=== PATIENT | male | born 1980 | race Two or more races ===

== ENCOUNTER 2025-07-17 12:15 | Inpatient (IN) | payer OTHER ==
[~2025-07-17] VITALS: Ht 30.5 cm; Wt 102.1 kg
[2025-07-24 07:45] LABS: URINE APPEARANCE Clear; URINE BILIRRUBIN Negative (NEGATIVE); URINE BLOOD Negative; URINE COLOR Yellow; URINE GLUCOSE Negative (NEGATIVE); URINE KETONE Negative (NEGATIVE); URINE LEUKOCYTE Negative; URINE NITRATE Negative; URINE PROTEIN Negative (NEGATIVE); URINE UROBILINOGEN 0.2 E.U./dl
[2025-07-24 07:50] LABS: URINE BACTERIA 25.1 uL (0.0-1933); URINE EPITHELIAL CELLS 4.1 uL (0.0-38.8); URINE RBC 2.0 uL (0.0-20.8); URINE WBC 4.9 uL (0.0-23.2)
[2025-07-24 07:56] LABS: URINE CAST 0.29 uL (0.0-1.40)
[2025-07-24] MEDS ORDERED: METRONIDAZOLE/SODIUM CHLORIDE 500 MG/100 ML PIGGYBACK IV ONE ×2 (11:06→12:30)
[2025-07-24] MEDS ORDERED: CEFTRIAXONE SODIUM 2,000 MG VIAL ONE (11:06)
[2025-07-24] MEDS ORDERED: CHLORHEXIDINE GLUCONATE 120 ML BOTTLE TOP ONE ×2 (11:45→12:30)
[2025-07-24] MEDS ORDERED: CEFTRIAXONE SODIUM 2,000 MG VIAL IV ONE (12:30)
[2025-07-24] MEDS ORDERED: FAMOTIDINE/PF 20 MG/2 ML VIAL ONE (12:46)
[2025-07-24] MEDS ORDERED: SUGAMMADEX SODIUM 200 MG/2 ML VIAL IV ONE (12:54)
[2025-07-24] MEDS ORDERED: OxyCODONE HCL 5 MG TABLET (ROXICODONE) PO PRN (15:45)
[2025-07-24] MEDS ORDERED: MORPHINE SULFATE 4 MG/ML CARTRIDGE IV PRN (15:45)
[2025-07-24] MEDS ORDERED: RINGERS SOLUTION,LACTATED 1,000 ML IV SCH (15:45)
[2025-07-24] MEDS ORDERED: ONDANSETRON HCL 2 MG/ML VIAL IV PRN (15:45)
[2025-07-24] MEDS ORDERED: DEXTROSE 50 % IN WATER 0.5 G/ML DISP.SYRIN IV PRN (15:45)
[2025-07-24] MEDS ORDERED: ENALAPRILAT DIHYDRATE 1.25 MG/ML VIAL IV PRN (16:00)
[2025-07-24] MEDS ORDERED: CELECOXIB 200 MG CAPSULE PO SCH (17:00)
[2025-07-24] MEDS ORDERED: HYOSCYAMINE SULFATE 0.125 MG TAB.SUBL SL SCH (17:00)
[2025-07-24] MEDS ORDERED: SIMETHICONE 125 MG CAPSULE PO SCH (17:00)
[2025-07-24] MEDS ORDERED: GABAPENTIN 300 MG CAPSULE PO SCH (17:00)
[2025-07-24] MEDS ORDERED: METOCLOPRAMIDE HCL 5 MG/ML VIAL IV SCH (17:00)
[2025-07-24] MEDS ORDERED: METOCLOPRAMIDE HCL 5 MG/ML VIAL ONE (17:34)
[2025-07-24 17:48] LABS: BASO % 0.3 % (0.1-1.2); EOS # 0.01 (0.04-0.54); EOS % 0.1 % (0.7-7.0); LYMPH # 1.20 (1.18-3.74); LYMPH % 7.4 % (19.3-53.1); MEAN PLATELET VOLUME 9.30 fl (9.4-12.4); MONO # 1.06 (0.24-0.82); MONO % 6.5 % (4.7-12.5); NEUT # 13.93 (1.56-6.13); NEUT % 85.3 % (34.0-71.1); RED CELL DISTRIBUTION WIDTH 13.3 % (11.6-14.4)
[2025-07-24 18:08] VITALS: BP 152/88; O2SAT 99
[2025-07-24] MEDS ORDERED: ACETAMINOPHEN 500 MG GEL..CAP PO SCH (20:00)
[2025-07-24] MEDS ORDERED: FAMOTIDINE/PF 20 MG/2 ML VIAL IV PUSH SCH (21:00)
[2025-07-25 01:38] VITALS: BP 142/78; O2SAT 97
[2025-07-25 06:16] LABS: BASO % 0.2 % (0.1-1.2); EOS # 0.00 (0.04-0.54); EOS % 0.0 % (0.7-7.0); LYMPH # 0.72 (1.18-3.74); LYMPH % 5.8 % (19.3-53.1); MEAN PLATELET VOLUME 9.90 fl (9.4-12.4); MONO # 1.24 (0.24-0.82); MONO % 9.9 % (4.7-12.5); NEUT # 10.44 (1.56-6.13); NEUT % 83.7 % (34.0-71.1); RED CELL DISTRIBUTION WIDTH 13.1 % (11.6-14.4)
[2025-07-25 06:35] LABS: BUN CREA RATIO 9.0 (7.0-25.0); CREATININE SERUM 1.01 mg/dL (0.70-1.30); GFR 79.18; GLUCOSE FASTING 146.0 mg/dL (65-100); OSMOLALITY SERUM 275.0 MOSM/KG (275-295)
[2025-07-25 08:00] VITALS: BP 154/93; O2SAT 96
[2025-07-25] MEDS ORDERED: LACTOBACILLUS ACIDOPHILUS 1 CAP CAP PO SCH (09:00)
[2025-07-25] MEDS ORDERED: LACTULOSE 20 G/30 ML BLIST.PACK PO SCH (09:00)
[2025-07-25] MEDS ORDERED: MAGNESIUM SULFATE IN WATER 50 ML IV NR (10:45)
[2025-07-25 16:00] VITALS: BP 152/96; O2SAT 96
[2025-07-25] MEDS ORDERED: ENOXAPARIN SODIUM 40 MG/0.4 ML SYRINGE SUBCUTANEO SCH (17:00)
[2025-07-26 01:07] VITALS: BP 146/79; O2SAT 97
[2025-07-26 06:40] LABS: BASO % 0.6 % (0.1-1.2); EOS # 0.14 (0.04-0.54); EOS % 1.1 % (0.7-7.0); LYMPH # 1.63 (1.18-3.74); LYMPH % 13.1 % (19.3-53.1); MEAN PLATELET VOLUME 10.10 fl (9.4-12.4); MONO # 1.40 (0.24-0.82); MONO % 11.3 % (4.7-12.5); NEUT # 9.13 (1.56-6.13); NEUT % 73.5 % (34.0-71.1); RED CELL DISTRIBUTION WIDTH 13.3 % (11.6-14.4)
[2025-07-26 07:34] LABS: BUN CREA RATIO 12.0 (7.0-25.0); CREATININE SERUM 1.04 mg/dL (0.70-1.30); GFR 76.55; GLUCOSE FASTING 117.0 mg/dL (65-100); OSMOLALITY SERUM 278.0 MOSM/KG (275-295)
[2025-07-26] MEDS ORDERED: ENOXAPARIN SODIUM 40 MG/0.4 ML SYRINGE SUBCUTANEO SCH (09:00)
[2025-07-26 09:19] VITALS: BP 140/89; O2SAT 95
[2025-07-26 16:16] VITALS: BP 164/95; O2SAT 96
[2025-07-26] MEDS ORDERED: MORPHINE SULFATE 4 MG/ML CARTRIDGE IV PRN (21:45)
[2025-07-27 01:02] VITALS: BP 120/74; O2SAT 97
[2025-07-27 08:00] VITALS: BP 137/90; O2SAT 97
[2025-07-27 16:00] VITALS: BP 125/86; O2SAT 97
[2025-07-28 00:40] VITALS: BP 110/75; O2SAT 96
[2025-07-28 08:39] VITALS: BP 135/89; O2SAT 96
[2025-07-28 14:06] LABS: BASO % 0.3 % (0.1-1.2); EOS # 0.09 (0.04-0.54); EOS % 0.6 % (0.7-7.0); LYMPH # 1.39 (1.18-3.74); LYMPH % 9.9 % (19.3-53.1); MEAN PLATELET VOLUME 9.70 fl (9.4-12.4); MONO # 1.32 (0.24-0.82); MONO % 9.4 % (4.7-12.5); NEUT # 11.07 (1.56-6.13); NEUT % 79.0 % (34.0-71.1); RED CELL DISTRIBUTION WIDTH 12.7 % (11.6-14.4)
[2025-07-28 14:47] LABS: ALT/SGPT 36.0 U/L (12-78); AST/SGOT 18.0 U/L (15-37); BILIRUBIN TOTAL 1.18 mg/dL (0.3-1.2); BUN CREA RATIO 14.0 (7.0-25.0); CREATININE SERUM 0.9 mg/dL (0.70-1.30); GFR 90.45; GLOBULINA 4.1 G/DL (2.4-3.5); GLUCOSE FASTING 141.0 mg/dL (65-100); OSMOLALITY SERUM 278.0 MOSM/KG (275-295)
[2025-07-28 16:00] VITALS: BP 148/90; O2SAT 98
[2025-07-28] MEDS ORDERED: PIPERACILLIN/TAZOBACTAM SODIUM 3.375 GM in 0.9 % SODIUM CHLORIDE 100 ML IV SCH (18:12)
[2025-07-29 00:30] VITALS: BP 136/89; O2SAT 97
[2025-07-29 08:07] VITALS: BP 126/87; O2SAT 95
[2025-07-29 08:07] LABS: ALT/SGPT 31.0 U/L (12-78); AST/SGOT 17.0 U/L (15-37); BILIRUBIN TOTAL 1.11 mg/dL (0.3-1.2); BUN CREA RATIO 16.0 (7.0-25.0); CREATININE SERUM 0.94 mg/dL (0.70-1.30); GFR 86.02; GLOBULINA 4.1 G/DL (2.4-3.5); GLUCOSE FASTING 132.0 mg/dL (65-100); OSMOLALITY SERUM 273.0 MOSM/KG (275-295)
[2025-07-29 08:11] LABS: BASO % 0.3 % (0.1-1.2); EOS # 0.17 (0.04-0.54); EOS % 1.2 % (0.7-7.0); LYMPH # 1.19 (1.18-3.74); LYMPH % 8.4 % (19.3-53.1); MEAN PLATELET VOLUME 9.60 fl (9.4-12.4); MONO # 1.62 (0.24-0.82); MONO % 11.5 % (4.7-12.5); NEUT # 11.00 (1.56-6.13); NEUT % 77.9 % (34.0-71.1); RED CELL DISTRIBUTION WIDTH 12.8 % (11.6-14.4)
[2025-07-29 15:00] VITALS: BP 135/89; O2SAT 95
[2025-07-30] VITALS: BP 131/78; O2SAT 97
[2025-07-30 08:09] VITALS: BP 139/80; O2SAT 99
[2025-07-30 16:40] VITALS: BP 142/87; O2SAT 97
[2025-07-31 00:30] VITALS: BP 130/78; O2SAT 97
[2025-07-31 06:31] LABS: BASO % 0.5 % (0.1-1.2); EOS # 0.39 (0.04-0.54); EOS % 4.3 % (0.7-7.0); LYMPH # 1.67 (1.18-3.74); LYMPH % 18.3 % (19.3-53.1); MEAN PLATELET VOLUME 9.30 fl (9.4-12.4); MONO # 1.20 (0.24-0.82); NEUT # 5.71 (1.56-6.13); NEUT % 62.7 % (34.0-71.1); RED CELL DISTRIBUTION WIDTH 12.4 % (11.6-14.4)
[2025-07-31 06:47] LABS: MONO % 13.2 % (4.7-12.5)
[2025-07-31 06:56] LABS: BUN CREA RATIO 15.0 (7.0-25.0); CREATININE SERUM 0.88 mg/dL (0.70-1.30); GFR 92.82; GLUCOSE FASTING 100.0 mg/dL (65-100); OSMOLALITY SERUM 276.0 MOSM/KG (275-295)
[2025-07-31 08:00] VITALS: BP 151/90; O2SAT 98
[2025-07-31] MEDS ORDERED: PAIN RELIEVER500 M2 PO (13:40)
[2025-07-31] MEDS ORDERED: SIMETHICONE125 M1 PO (13:40)
[2025-07-31] MEDS ORDERED: HYOSCYAMINE0.125 M1 SL (13:40)
== END 2025-07-31 18:00 | disposition home or self-care (01) | DRG 330 ==
LOC: O/R 07-24 10:00 → SURG 07-24 12:15 → SURH 07-24 17:12
PROVIDERS: Internal Medicine; Internal Medicine Geriatric Medicine; ADMIT Colon & Rectal Surgery; ATTEND Colon & Rectal Surgery
PROC: 0DBP4ZZ Excision of Rectum, Percutaneous Endoscopic Approach (ICD-10-PCS; 2025-07-24)
PROC: 0DTN4ZZ Resection of Sigmoid Colon, Percutaneous Endoscopic Approach (ICD-10-PCS; 2025-07-24)
PROC: 0DBE4ZZ Excision of Large Intestine, Percutaneous Endoscopic Approach (ICD-10-PCS; 2025-07-24)
PROC: 0WQF4ZZ Repair Abdominal Wall, Percutaneous Endoscopic Approach (ICD-10-PCS; 2025-07-24)
PROC: 0DJD8ZZ Inspection of Lower Intestinal Tract, Via Natural or Artificial Opening Endoscopic (ICD-10-PCS; 2025-07-24)
PROC: 0D1B4Z4 Bypass Ileum to Cutaneous, Percutaneous Endoscopic Approach (ICD-10-PCS; principal; 2025-07-24 13:00)
DX: K57.30 Diverticulosis of large intestine without perforation or abscess without bleeding (principal); K56.7 Ileus, unspecified; K91.89 Other postprocedural complications and disorders of digestive system; D72.828 Other elevated white blood cell count; K66.0 Peritoneal adhesions (postprocedural) (postinfection); K43.2 Incisional hernia without obstruction or gangrene; K52.9 Noninfective gastroenteritis and colitis, unspecified; I10 Essential (primary) hypertension; Z43.2 Encounter for attention to ileostomy; Z43.3 Encounter for attention to colostomy